=== PATIENT | female | born 1930 | race Hispanic/Latino ===

== ENCOUNTER 2016-10-09 10:22 | Outpatient (CLI) | payer MEDICARE, BC, OTHER ==
[2016-10-09] MEDS ORDERED: NACL ONE (12:53)
[2016-10-09 15:14] LABS: Albumin 2.5 g/dL (3.9-5); Albumin/Globulin Ratio 0.8 %; BUN/Creatinine Ratio 16.87; Bilirubin,Total 0.3 mg/dL (0.1-1.2); Calcium 9.3 mg/dL (8.4-10.2); Chloride 103.9 mmol/L (98-107); Potassium 4.6 mmol/L (3.6-5.0); Total Protein 5.8 g/dL (6.3-8.2)
--- NOTE | 2016-10-09 15:16 | Cat Scan Report ---
CT of the abdomen and pelvis with oral contrast and without IV contrast. History: Abdominal pain. Comparison is made to previous study on August 27, 2012. Findings: The heart is mildly enlarged. The liver and spleen are normal. There are multiple densely calcified gallstones. The wall of the gallbladder does not appear thickened. The pancreas is unremarkable. The kidneys are normal in size and configuration. 3 small stones are seen in the right kidney the largest of which measures 3 mm in diameter and there is no hydronephrosis. A 1.8 cm hyperdense mass in the lower pole of the right kidney probably represents a simple cyst. Intravenous contrast would better characterize this lesion. Ultrasound may also be useful. A subcentimeter cyst is seen arising from the posterior cortex of the left kidney. Extensive atherosclerotic calcifications are seen in the abdominal aorta and iliac arteries. There are no pelvic masses or abnormal fluid collections. The uterus has been removed. There is no evidence of mesenteric inflammation or abscess. No free air is seen. 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 Impression: 1. Cholelithiasis with no evidence of acute cholecystitis on this study. 2. Right nephrolithiasis without hydronephrosis. Bilateral renal cysts are noted. 3. No acute findings.
== END 2016-10-09 10:23 | disposition home or self-care (01) ==
LOC: CT 10:22
PROVIDERS: ATTEND Internal Medicine
DX: K80.20 Calculus of gallbladder without cholecystitis without obstruction (principal); N20.0 Calculus of kidney; N28.1 Cyst of kidney, acquired; N28.89 Other specified disorders of kidney and ureter; I51.7 Cardiomegaly; I70.0 Atherosclerosis of aorta; Z90.710 Acquired absence of both cervix and uterus; M41.86 Other forms of scoliosis, lumbar region; M51.37 Other intervertebral disc degeneration, lumbosacral region
CPT/HCPCS: 36415; 74176; 80053; 82150; 82565; 83690; 84520